=== PATIENT | male | born 1945 | race Caucasian/White ===

== ENCOUNTER 2020-04-05 15:43 | Inpatient (IN) ==
[2020-04-05 16:53] LABS: Basophils # 0.1 10*3/uL (0.0-0.2); Basophils % 0.2 % (0.0-0.8); Eosinophils % 0.1 % (0.00-10.9); Hematocrit 48.2 VOL% (42.0-52.0); Hemoglobin 15.6 GM/DL (14.0-18.0); Immature Granulocytes % 1.1 %; Immature Granulocytes Absolute 0.23 #; Lymphocytes # 1.5 10*3/uL (1.4-4.0); Lymphocytes % 7.2 % (21.2-54.2); Mean Corpuscular HGB Conc 32.4 GM/DL (32-36); Mean Platelet Volume 8.5 FL (9.6-12.0); Monocytes % 3.9 % (1.7-12.7); Neutrophils % 87.5 % (38.7-73.9); Platelet Count 308 T/CUMM (130-400); Red Blood Count 4.97 MC/CUMM (3.8-5.5); Red Cell Distribution Width 13.4 % (9.3-17.3); White Blood Count 20.8 T/CUMM (4-12)
[2020-04-05 17:15] LABS: Calcium 8.7 MG/DL (8.5-10.1); Osmolality,Calculated 274.8 MOS/KG (273-304)
[2020-04-05 17:25] LABS: Band Neutrophils 6 % (0-10); Lymphocytes 7 % (20-55); Metamyelocytes 1 %; Segmented Neutrophils 83 % (50-85); Total Cells Counted 100
[2020-04-05 17:26] LABS: Platelet Estimate Normal; Reactive Lymphocytes Slight
[2020-04-05] MEDS ORDERED: KETOROLAC 30 MG/1 ML VIAL ONE (19:17)
[2020-04-05] MEDS ORDERED: ONDANSETRON 4 MG/2 ML VIAL IV PRN (19:21)
[2020-04-05] MEDS ORDERED: DICLOFENAC 1% GEL 100 GM TUBE TOP PRN (19:21)
[2020-04-05] MEDS ORDERED: PROMETHAZINE 25 MG/1 ML VIAL IM PRN (19:21)
[2020-04-05] MEDS ORDERED: KETOROLAC 30 MG/1 ML VIAL IV ONE (19:22)
[2020-04-05] MEDS: MELOXICAM 7.5 MG TABLET PO SCH (21:34)
[2020-04-05] MEDS: CLOPIDOGREL 75 MG TABLET PO SCH (21:34)
[2020-04-05] MEDS: MONTELUKAST 10 MG TABLET PO SCH (21:34)
[2020-04-05] MEDS: ASPIRIN EC 81 MG TABLET PO SCH (21:34)
[2020-04-05] MEDS: ATORVASTATIN 40 MG TABLET PO SCH (21:34)
[2020-04-05] MEDS: TAMSULOSIN 0.4 MG CAPSULE PO SCH (21:34)
[2020-04-05] MEDS: cilostazoL 50 MG TABLET PO SCH (21:34)
[2020-04-05] MEDS: MORPHINE ER 30 MG TABLET PO SCH (21:34)
[2020-04-05] MEDS: LACTATED RINGERS 1,000 ML IV SCH (21:35)
[2020-04-05] MEDS: HYDROmorphone 2 MG/1 ML VIAL IV PRN (22:26)
[2020-04-06] MEDS: KETOROLAC 15 MG/1 ML VIAL IV PRN ×3 (01:20→21:40)
[2020-04-06] MEDS: LACTATED RINGERS 1,000 ML IV SCH ×3 (04:47→20:58)
[2020-04-06] MEDS ORDERED: PANTOPRAZOLE 40 MG TABLET PO SCH (09:00)
[2020-04-06] MEDS: VENLAFAXINE XR 75 MG CAPSULE PO SCH (09:25)
[2020-04-06] MEDS: MORPHINE ER 30 MG TABLET PO SCH ×2 (09:26→20:59)
[2020-04-06] MEDS: METOPROLOL SUCCINATE XL 25 MG TABLET PO SCH (09:26)
[2020-04-06] MEDS: predniSONE 10 MG TABLET PO SCH (09:26)
[2020-04-06] MEDS: PANTOPRAZOLE 40 MG TABLET PO SCH (09:26)
[2020-04-06] MEDS: cilostazoL 50 MG TABLET PO SCH ×2 (09:26→20:59)
[2020-04-06] MEDS: LOSARTAN/HCTZ 50-12.5 MG TABLET PO SCH (09:26)
[2020-04-06] MEDS: ENOXAPARIN 40 MG/0.4 ML SYRINGE SUBCUT SCH (11:26)
[2020-04-06] MEDS: ASPIRIN EC 81 MG TABLET PO SCH (20:58)
[2020-04-06] MEDS: MONTELUKAST 10 MG TABLET PO SCH (20:59)
[2020-04-06] MEDS: TAMSULOSIN 0.4 MG CAPSULE PO SCH (20:59)
[2020-04-06] MEDS: MELOXICAM 7.5 MG TABLET PO SCH (20:59)
[2020-04-06] MEDS: CLOPIDOGREL 75 MG TABLET PO SCH (20:59)
[2020-04-07] MEDS: HYDROmorphone 2 MG/1 ML VIAL IV PRN ×4 (04:00→15:29)
[2020-04-07] MEDS: LACTATED RINGERS 1,000 ML IV SCH (04:02)
[2020-04-07] MEDS: KETOROLAC 15 MG/1 ML VIAL IV PRN (07:45)
[2020-04-07] MEDS: VENLAFAXINE XR 75 MG CAPSULE PO SCH (10:58)
[2020-04-07] MEDS: predniSONE 10 MG TABLET PO SCH (10:58)
[2020-04-07] MEDS: LOSARTAN/HCTZ 50-12.5 MG TABLET PO SCH (10:58)
[2020-04-07] MEDS: PANTOPRAZOLE 40 MG TABLET PO SCH (10:58)
[2020-04-07] MEDS: MORPHINE ER 30 MG TABLET PO SCH (10:58)
[2020-04-07] MEDS: METOPROLOL SUCCINATE XL 25 MG TABLET PO SCH (10:59)
[2020-04-07] MEDS: cilostazoL 50 MG TABLET PO SCH (10:59)
[2020-04-07] MEDS: ENOXAPARIN 40 MG/0.4 ML SYRINGE SUBCUT SCH (11:41)
[2020-04-07] MEDS ORDERED: HYDROmorphone 2 MG/1 ML VIAL IV ONE ×2 (12:22→21:53)
[2020-04-07] MEDS ORDERED: NALOXONE 0.4 MG/ML VIAL IV PRN (12:22)
[2020-04-07] MEDS: ALBUTEROL/IPRATROPIUM 3 ML NEB RESP TX SCH ×4 (12:52→23:00)
[2020-04-07] MEDS: LIDOCAINE 5% PATCH TRANSDERM SCH (15:08)
[2020-04-07] MEDS: HYDROmorphone PCA 30 MG/30 ML SYRINGE IV SCH (15:38)
[2020-04-07] MEDS: GABAPENTIN 100 MG CAPSULE PO SCH (16:40)
[2020-04-07 20:51] LABS: ABG Base Excess 3.6 MMOL/L (-2.5-2.5); ABG HCO3 27.5 MMOL/L (20-26); ABG Oxygen Saturation 93.8 % (95-100); ABG PCO2 44.4 MM HG (35-48); ABG PH 7.419 (7.35-7.45); ABG PO2 68.3 MM HG (80-95); ABG TCO2 24.4 MMOL/L (23-27); Allen Test Positive; Pt O2 Delivery Device BIPAP
[2020-04-07] MEDS ORDERED: SUCCINYLCHOLINE 200 MG/10 ML VIAL ONE (21:09)
[2020-04-07] MEDS ORDERED: ETOMIDATE 20 MG/10 ML VIAL IV ONE (21:09)
[2020-04-07 22:00] LABS: Basophils # 0.1 10*3/uL (0.0-0.2); Basophils % 0.2 % (0.0-0.8); Hematocrit 47.3 VOL% (42.0-52.0); Immature Granulocytes % 0.7 %; Immature Granulocytes Absolute 0.17 #; Lymphocytes # 1.7 10*3/uL (1.4-4.0); Lymphocytes % 6.5 % (21.2-54.2); Mean Corpuscular HGB Conc 31.7 GM/DL (32-36); Mean Corpuscular Volume 98.5 FL (87-102); Mean Platelet Volume 8.8 FL (9.6-12.0); Monocytes % 3.2 % (1.7-12.7); Neutrophils % 89.4 % (38.7-73.9); Platelet Count 292 T/CUMM (130-400); Red Cell Distribution Width 13.3 % (9.3-17.3); White Blood Count 26.1 T/CUMM (4-12)
[2020-04-07] MEDS ORDERED: HEPARIN 5,000 UNIT/1 ML VIAL IV ONE (22:00)
[2020-04-07] MEDS ORDERED: VECURONIUM 10 MG VIAL IV ONE (22:05)
[2020-04-07 22:13] LABS: Allen Test Positive; Pt O2 Delivery Device Ventilator
[2020-04-07 22:15] LABS: Calcium 8.2 MG/DL (8.5-10.1); INR 1.1; Osmolality,Calculated 272.1 MOS/KG (273-304); PT Patient Result 11.8 SECS (9.8-11.9); Partial Thromboplastin Time 29.3 SECS (23.9-33.8)
[2020-04-07 22:15] LABS: ABG Base Excess 0.8 MMOL/L (-2.5-2.5); ABG HCO3 24.7 MMOL/L (20-26); ABG Oxygen Saturation 82.4 % (95-100); ABG PCO2 44.2 MM HG (35-48); ABG PH 7.383 (7.35-7.45); ABG PO2 46.7 MM HG (80-95); ABG TCO2 22.6 MMOL/L (23-27)
[2020-04-07] MEDS ORDERED: FUROSEMIDE 40 MG/4 ML VIAL ONE (22:16)
[2020-04-07] MEDS ORDERED: HEPARIN/NACL 0.9% 2 UNITS/ML 1,000 ML IV ONE (22:20)
[2020-04-07] MEDS ORDERED: LIDOCAINE 1% 20 ML VIAL ONE (22:20)
[2020-04-07 22:22] LABS: Band Neutrophils 8 % (0-10); Lymphocytes 7 % (20-55); Platelet Estimate Adequate; Segmented Neutrophils 82 % (50-85); Total Cells Counted 100
[2020-04-07 22:23] LABS: CKMB % 2.7 %
[2020-04-07] MEDS ORDERED: FUROSEMIDE 40 MG/4 ML VIAL IV ONE (22:24)
[2020-04-07 22:26] LABS: Troponin I 2.4 NG/ML (0.00-0.045)
[2020-04-07 22:32] LABS: Ferritin 303.1 ng/ml (26-388)
[2020-04-07] MEDS ORDERED: HEPARIN 5,000 UNIT/1 ML VIAL ONE (23:11)
[2020-04-07] MEDS ORDERED: ESMOLOL 2,500 MG/250 ML PREMIX IV SCH (23:45)
[2020-04-07] MEDS ORDERED: MAGNESIUM SULF RIDER 4 GM in PREMIX 1 EACH IV ONE (23:49)
[2020-04-08] MEDS: PHENYLEPHRINE DRIP 40 MG/250 ML PREMIX IV PRN ×5 (00:30→11:34)
[2020-04-08] MEDS ORDERED: VECURONIUM 100 MG in SODIUM CHLORIDE 0.9% 100 ML IV SCH (00:30)
[2020-04-08] MEDS ORDERED: CISATRACURIUM 200 MG in SODIUM CHLORIDE 0.9% 180 ML IV PRN (00:34)
[2020-04-08] MEDS: TAMSULOSIN 0.4 MG CAPSULE PO SCH ×2 (01:23→22:55)
[2020-04-08] MEDS: MELOXICAM 7.5 MG TABLET PO SCH (01:23)
[2020-04-08] MEDS: MORPHINE ER 30 MG TABLET PO SCH ×3 (01:23→22:54)
[2020-04-08] MEDS: ASPIRIN EC 81 MG TABLET PO SCH ×2 (01:23→22:53)
[2020-04-08] MEDS: MONTELUKAST 10 MG TABLET PO SCH ×2 (01:24→22:53)
[2020-04-08] MEDS: GABAPENTIN 100 MG CAPSULE PO SCH ×4 (01:24→22:55)
[2020-04-08] MEDS: CLOPIDOGREL 75 MG TABLET PO SCH ×2 (01:24→22:54)
[2020-04-08] MEDS: cilostazoL 50 MG TABLET PO SCH (01:24)
[2020-04-08 01:31] LABS: Basophils # 0.1 10*3/uL (0.0-0.2); Basophils % 0.2 % (0.0-0.8); Eosinophils # 0.1 10*3/uL (0.0-0.87); Eosinophils % 0.3 % (0.00-10.9); Hemoglobin 14.1 GM/DL (14.0-18.0); Immature Granulocytes % 0.6 %; Immature Granulocytes Absolute 0.13 #; Lymphocytes # 0.8 10*3/uL (1.4-4.0); Mean Corpuscular Volume 97.8 FL (87-102); Mean Platelet Volume 9.4 FL (9.6-12.0); Monocytes % 2.4 % (1.7-12.7); Neutrophils % 92.5 % (38.7-73.9); Platelet Count 265 T/CUMM (130-400); Red Cell Distribution Width 13.3 % (9.3-17.3); White Blood Count 20.3 T/CUMM (4-12)
[2020-04-08 01:48] LABS: Calcium 8.1 MG/DL (8.5-10.1); Osmolality,Calculated 271.2 MOS/KG (273-304)
[2020-04-08] MEDS: ALBUTEROL/IPRATROPIUM 3 ML NEB RESP TX SCH ×6 (03:00→23:40)
[2020-04-08 03:30] LABS: Band Neutrophils 10 % (0-10); Hypochromasia 2+; Lymphocytes 4 % (20-55); Platelet Estimate Normal; Segmented Neutrophils 83 % (50-85); Total Cells Counted 100
[2020-04-08 04:34] LABS: ABG Base Excess -1.1 MMOL/L (-2.5-2.5); ABG HCO3 27.2 MMOL/L (20-26); ABG Oxygen Saturation 93.6 % (95-100); ABG PCO2 60.7 MM HG (35-48); ABG PH 7.269 (7.35-7.45); ABG PO2 76.7 MM HG (80-95); Allen Test Positive; Pt O2 Delivery Device Ventilator
[2020-04-08 07:59] LABS: ABG Base Excess -0.6 MMOL/L (-2.5-2.5); ABG HCO3 23.7 MMOL/L (20-26); ABG Oxygen Saturation 91.7 % (95-100); ABG PH 7.236 (7.35-7.45); ABG PO2 71.8 MM HG (80-95)
[2020-04-08] MEDS ORDERED: FUROSEMIDE 40 MG/4 ML VIAL IV SCH (08:00)
[2020-04-08 08:04] LABS: ABG PCO2 69.7 MM HG (35-48)
[2020-04-08] MEDS ORDERED: SODIUM CHLORIDE 0.9% 500 ML IV ONE (08:52)
[2020-04-08 09:02] LABS: CKMB % 3.7 %
[2020-04-08] MEDS ORDERED: NOREPINEPHRINE 4 MG/4 ML VIAL IV ONE (09:03)
[2020-04-08 09:05] LABS: Troponin I 4.08 NG/ML (0.00-0.045)
[2020-04-08] MEDS ORDERED: fentaNYL INJ 1,250 MCG in SODIUM CHLORIDE 0.9% 225 ML IV PRN (09:20)
[2020-04-08] MEDS: methylPREDNISolone SOD SUC 40 MG/1 ML VIAL IV SCH ×2 (09:55→17:59)
[2020-04-08] MEDS: VENLAFAXINE XR 75 MG CAPSULE PO SCH (09:55)
[2020-04-08] MEDS: PANTOPRAZOLE 40 MG VIAL IV SCH (09:55)
[2020-04-08] MEDS ORDERED: MAGNESIUM SULF RIDER 2 GM in PREMIX 1 EACH IV PRN (10:20)
[2020-04-08] MEDS ORDERED: MAGNESIUM SULF RIDER 4 GM in PREMIX 1 EACH IV PRN (10:20)
[2020-04-08] MEDS ORDERED: GLUCAGON 1 MG VIAL IM PRN (10:54)
[2020-04-08] MEDS: MIDAZOLAM 100 MG in SODIUM CHLORIDE 0.9% 80 ML IV PRN (10:57)
[2020-04-08] MEDS: NOREPINEPHRINE 8 MG in SODIUM CHLORIDE 0.9% 242 ML IV PRN (11:09)
[2020-04-08] MEDS ORDERED: DEXTROSE 10% 250 ML BAG IV PRN (11:21)
[2020-04-08] MEDS: FUROSEMIDE 40 MG/4 ML VIAL IV SCH ×2 (11:29→18:01)
[2020-04-08] MEDS: LIDOCAINE 5% PATCH TRANSDERM SCH (11:45)
[2020-04-08 12:10] LABS: CKMB % 4.2 %
[2020-04-08] MEDS: INSULIN REGULAR 100 UNIT/ML SUBCUT SCH ×2 (12:27→18:22)
[2020-04-08] MEDS: ENOXAPARIN 40 MG/0.4 ML SYRINGE SUBCUT SCH (13:00)
[2020-04-08] MEDS: HYDROmorphone PCA 30 MG/30 ML SYRINGE IV SCH (13:12)
[2020-04-08] MEDS: PHENYLEPHRINE INJ 160 MG in SODIUM CHLORIDE 0.9% 234 ML IV PRN ×2 (13:39→21:04)
[2020-04-08] MEDS ORDERED: LIDOCAINE 1% 20 ML VIAL ONE (15:11)
[2020-04-08] MEDS ORDERED: HEPARIN 5,000 UNIT/1 ML VIAL ONE ×2 (15:44→16:11)
[2020-04-08] MEDS: HEPARIN DRIP 25,000 UNITS/500 ML PREMIX IV SCH (18:33)
[2020-04-08 18:45] LABS: Basophils % 0.2 % (0.0-0.8); Hematocrit 42.7 VOL% (42.0-52.0); Hemoglobin 13.2 GM/DL (14.0-18.0); Immature Granulocytes % 0.7 %; Immature Granulocytes Absolute 0.14 #; Lymphocytes # 0.3 10*3/uL (1.4-4.0); Lymphocytes % 1.6 % (21.2-54.2); Mean Corpuscular HGB Conc 30.9 GM/DL (32-36); Mean Corpuscular Volume 100.7 FL (87-102); Mean Platelet Volume 9.4 FL (9.6-12.0); Monocytes % 2.1 % (1.7-12.7); Neutrophils % 95.4 % (38.7-73.9); Platelet Count 263 T/CUMM (130-400); Red Blood Count 4.24 MC/CUMM (3.8-5.5); Red Cell Distribution Width 13.4 % (9.3-17.3); White Blood Count 21.1 T/CUMM (4-12)
[2020-04-08 19:01] LABS: Albumin 1.9 G/DL (3.4-5.0); Bilirubin,Total 2.5 MG/DL (0.2-1.0); Calcium 7.6 MG/DL (8.5-10.1); Osmolality,Calculated 283.8 MOS/KG (273-304); Total Protein 5.5 G/DL (6.4-8.3)
[2020-04-08 19:42] LABS: Lymphocytes 2 % (20-55); Segmented Neutrophils 95 % (50-85); Total Cells Counted 100
[2020-04-08] MEDS: DEXTROSE 5% IV SCH (19:46)
[2020-04-08] MEDS: HEPARIN IV SCH (19:46)
[2020-04-08] MEDS: ATORVASTATIN 40 MG TABLET PO SCH (22:53)
[2020-04-09] MEDS: methylPREDNISolone SOD SUC 40 MG/1 ML VIAL IV SCH ×3 (00:35→16:35)
[2020-04-09] MEDS: INSULIN REGULAR 100 UNIT/ML SUBCUT SCH ×4 (00:35→17:38)
[2020-04-09] MEDS: CISATRACURIUM 200 MG in SODIUM CHLORIDE 0.9% 180 ML IV PRN ×2 (01:09→23:51)
[2020-04-09] MEDS: ALBUTEROL/IPRATROPIUM 3 ML NEB RESP TX SCH ×3 (02:35→12:27)
[2020-04-09] MEDS: OXYMETAZOLINE 0.05% NASAL SPRAY 15 ML BOTTLE BOTH NARES PRN ×2 (02:57→11:58)
[2020-04-09] MEDS: PHENYLEPHRINE INJ 160 MG in SODIUM CHLORIDE 0.9% 234 ML IV PRN (05:09)
[2020-04-09 05:47] LABS: ABG Base Excess -1.2 MMOL/L (-2.5-2.5); ABG Oxygen Saturation 98.4 % (95-100); ABG PH 7.301 (7.35-7.45); ABG PO2 126.4 MM HG (80-95); ABG TCO2 27.7 MMOL/L (23-27)
[2020-04-09 05:48] LABS: Basophils % 0.2 % (0.0-0.8); Hematocrit 41.4 VOL% (42.0-52.0); Hemoglobin 13.2 GM/DL (14.0-18.0); Immature Granulocytes % 0.8 %; Immature Granulocytes Absolute 0.17 #; Lymphocytes # 0.4 10*3/uL (1.4-4.0); Lymphocytes % 1.9 % (21.2-54.2); Mean Corpuscular HGB Conc 31.9 GM/DL (32-36); Mean Corpuscular Volume 98.8 FL (87-102); Mean Platelet Volume 9.5 FL (9.6-12.0); Monocytes % 3.2 % (1.7-12.7); Neutrophils % 93.9 % (38.7-73.9); Platelet Count 232 T/CUMM (130-400); Red Blood Count 4.19 MC/CUMM (3.8-5.5); Red Cell Distribution Width 13.4 % (9.3-17.3); White Blood Count 22.1 T/CUMM (4-12)
[2020-04-09 06:09] LABS: Band Neutrophils 10 % (0-10); Calcium 7.7 MG/DL (8.5-10.1); Hypochromasia Slight; Lymphocytes 1 % (20-55); Osmolality,Calculated 287.7 MOS/KG (273-304); Polychromasia Slight; Segmented Neutrophils 87 % (50-85); Total Cells Counted 100
[2020-04-09 06:10] LABS: Microcytosis Slight; Platelet Estimate Normal
[2020-04-09 06:38] LABS: Prealbumin 6.3 MG/DL (20-40)
[2020-04-09 07:19] LABS: Bilirubin,Direct 1.99 MG/DL (0.0-0.20); Bilirubin,Indirect 1.3 MG/DL (0.0-1.0); Bilirubin,Total 3.3 MG/DL (0.2-1.0); Total Protein 4.8 G/DL (6.4-8.3)
[2020-04-09] MEDS: FUROSEMIDE 40 MG/4 ML VIAL IV SCH (09:13)
[2020-04-09] MEDS: PANTOPRAZOLE 40 MG VIAL IV SCH (09:13)
[2020-04-09] MEDS: VENLAFAXINE XR 75 MG CAPSULE PO SCH (09:23)
[2020-04-09] MEDS: MORPHINE ER 30 MG TABLET PO SCH ×2 (09:24→21:38)
[2020-04-09] MEDS: GABAPENTIN 100 MG CAPSULE PO SCH ×3 (09:24→21:38)
[2020-04-09] MEDS: METOPROLOL TARTRATE 25 MG TABLET PO SCH ×2 (09:25→21:38)
[2020-04-09] MEDS: POTASSIUM CHLORIDE 20 MEQ/15 ML UDCUP PER TUBE PRN ×2 (09:27→12:30)
[2020-04-09] MEDS: LIDOCAINE 5% PATCH TRANSDERM SCH (09:28)
[2020-04-09] MEDS ORDERED: METOPROLOL TARTRATE 5 MG/5 ML VIAL IV ONE (09:47)
[2020-04-09] MEDS: SODIUM CHLORIDE 0.9% 1,000 ML IV SCH (12:00)
[2020-04-09] MEDS: METOPROLOL TARTRATE 5 MG/5 ML VIAL IV SCH ×2 (12:23→18:26)
[2020-04-09] MEDS: HYDROmorphone PCA 30 MG/30 ML SYRINGE IV SCH (12:28)
[2020-04-09] MEDS: HEPARIN DRIP 25,000 UNITS/500 ML PREMIX IV SCH ×2 (14:25→18:16)
[2020-04-09] MEDS: HEPARIN IV SCH (18:16)
[2020-04-09] MEDS: DEXTROSE 5% IV SCH (18:16)
[2020-04-09] MEDS: ASPIRIN CHEW 81 MG TABLET PO SCH (21:38)
[2020-04-09] MEDS: TAMSULOSIN 0.4 MG CAPSULE PO SCH (21:38)
[2020-04-09] MEDS: MONTELUKAST 10 MG TABLET PO SCH (21:39)
[2020-04-09] MEDS: CLOPIDOGREL 75 MG TABLET PO SCH (21:40)
[2020-04-10] MEDS: METOPROLOL TARTRATE 5 MG/5 ML VIAL IV SCH ×6 (00:27→22:37)
[2020-04-10] MEDS: methylPREDNISolone SOD SUC 40 MG/1 ML VIAL IV SCH ×3 (00:29→15:19)
[2020-04-10] MEDS: INSULIN REGULAR 100 UNIT/ML SUBCUT SCH ×4 (00:39→18:49)
[2020-04-10] MEDS: SODIUM CHLORIDE 0.9% 1,000 ML IV SCH ×2 (02:05→13:47)
[2020-04-10 04:05] LABS: Basophils % 0.2 % (0.0-0.8); Eosinophils # 0.1 10*3/uL (0.0-0.87); Eosinophils % 0.3 % (0.00-10.9); Hematocrit 36.5 VOL% (42.0-52.0); Hemoglobin 11.6 GM/DL (14.0-18.0); Immature Granulocytes % 1.2 %; Immature Granulocytes Absolute 0.28 #; Lymphocytes # 0.2 10*3/uL (1.4-4.0); Lymphocytes % 1.1 % (21.2-54.2); Mean Corpuscular HGB Conc 31.8 GM/DL (32-36); Mean Corpuscular Volume 98.4 FL (87-102); Mean Platelet Volume 10.2 FL (9.6-12.0); Monocytes % 5.1 % (1.7-12.7); NRBC # 0.02 10*3/uL; Neutrophils % 92.1 % (38.7-73.9); Red Blood Count 3.71 MC/CUMM (3.8-5.5); Red Cell Distribution Width 13.8 % (9.3-17.3); White Blood Count 22.6 T/CUMM (4-12)
[2020-04-10 04:11] LABS: Platelet Count 171 T/CUMM (130-400)
[2020-04-10 04:20] LABS: Calcium 7.3 MG/DL (8.5-10.1); Osmolality,Calculated 297.3 MOS/KG (273-304)
[2020-04-10] MEDS: MIDAZOLAM 100 MG in SODIUM CHLORIDE 0.9% 80 ML IV PRN ×2 (04:56→17:03)
[2020-04-10] MEDS: KETOROLAC 15 MG/1 ML VIAL IV PRN ×2 (05:12→14:28)
[2020-04-10 06:25] LABS: ABG Base Excess 1.6 MMOL/L (-2.5-2.5); ABG HCO3 25.8 MMOL/L (20-26); ABG Oxygen Saturation 97.3 % (95-100); ABG PCO2 46.9 MM HG (35-48); ABG PH 7.374 (7.35-7.45); ABG PO2 93.6 MM HG (80-95); ABG TCO2 24.5 MMOL/L (23-27)
[2020-04-10 06:49] LABS: Band Neutrophils 4 % (0-10); Lymphocytes 2 % (20-55); Segmented Neutrophils 88 % (50-85); Total Cells Counted 100
[2020-04-10 06:50] LABS: Microcytosis Slight; Platelet Estimate Adequate
[2020-04-10] MEDS: HEPARIN IV SCH (07:45)
[2020-04-10] MEDS: DEXTROSE 5% IV SCH (07:45)
[2020-04-10] MEDS: LIDOCAINE 5% PATCH TRANSDERM SCH (08:51)
[2020-04-10] MEDS: PANTOPRAZOLE 40 MG VIAL IV SCH (08:51)
[2020-04-10] MEDS: VENLAFAXINE XR 75 MG CAPSULE PO SCH (08:52)
[2020-04-10] MEDS: MORPHINE ER 30 MG TABLET PO SCH ×2 (08:52→23:04)
[2020-04-10] MEDS: GABAPENTIN 100 MG CAPSULE PO SCH ×3 (08:52→20:10)
[2020-04-10] MEDS: METOPROLOL TARTRATE 25 MG TABLET PO SCH (09:02)
[2020-04-10] MEDS: HEPARIN DRIP 25,000 UNITS/500 ML PREMIX IV SCH ×2 (10:10→18:47)
[2020-04-10] MEDS: ACETAMINOPHEN 325 MG TABLET PO PRN ×3 (10:15→20:45)
[2020-04-10 10:59] LABS: Apearance,Urine Slightly Hazy (Clear); Bilirubin,Urine Negative (Negative); Blood, Urine Moderate mg/dL (Negative); Glucose,Urine (UA) Negative (Negative); Ketones,Urine Negative (Negative); Mucus,Urine Occasional /LPF (Occasional); Nitrite,Urine Negative (Negative); Protein,Urine 30 MG/DL; RBC,Urine 4 /HPF (0-4); Squamous Epithelial Cell,Urine Occasional /HPF (0-10); Urine Color Amber (Yellow); Urine Specific Gravity 1.019 (1.001-1.035); WBC,Urine 9 /HPF (0-6)
[2020-04-10] MEDS ORDERED: METOPROLOL TARTRATE 5 MG/5 ML VIAL IV ONE (12:03)
[2020-04-10] MEDS: CISATRACURIUM 200 MG in SODIUM CHLORIDE 0.9% 180 ML IV PRN (15:21)
[2020-04-10] MEDS ORDERED: METOPROLOL TARTRATE 5 MG/5 ML VIAL IV PRN (16:00)
[2020-04-10] MEDS ORDERED: SODIUM CHLORIDE 0.9% 500 ML IV ONE (16:13)
[2020-04-10] MEDS: ASPIRIN CHEW 81 MG TABLET PO SCH (20:11)
[2020-04-10] MEDS: MONTELUKAST 10 MG TABLET PO SCH (20:11)
[2020-04-10] MEDS: HYDROmorphone 2 MG/1 ML VIAL IV PRN (20:11)
[2020-04-10] MEDS: ATORVASTATIN 40 MG TABLET PO SCH (20:11)
[2020-04-10] MEDS: TAMSULOSIN 0.4 MG CAPSULE PO SCH (20:11)
[2020-04-10] MEDS ORDERED: DIGOXIN 0.5 MG/2 ML AMP IV ONE (21:32)
[2020-04-10] MEDS ORDERED: ALBUMIN 25% 25 GM in PREMIX 1 EACH IV ONE (21:32)
[2020-04-10] MEDS ORDERED: HYDROmorphone 2 MG/1 ML VIAL IV ONE (22:10)
[2020-04-10 22:21] LABS: Alanine Aminotransferase 26 U/L (16-61); Albumin 1.5 G/DL (3.4-5.0); Alkaline Phosphatase 71 U/L (45-117); Aspartate Amino Transferase 41 U/L (0-37); Blood Urea Nitrogen 68 MG/DL (7-18); Calcium 7.3 MG/DL (8.5-10.1); Estimated Glom Filtration Rate 37 ML/MIN; Glucose 127 MG/DL (74-106); Osmolality,Calculated 307.8 MOS/KG (273-304); Total Protein 4.9 G/DL (6.4-8.3)
[2020-04-10 22:53] LABS: ABG Base Excess -3.3 MMOL/L (-2.5-2.5); ABG HCO3 21.5 MMOL/L (20-26); ABG Oxygen Saturation 90.9 % (95-100); ABG PCO2 59.3 MM HG (35-48); ABG PH 7.241 (7.35-7.45); ABG PO2 69.5 MM HG (80-95); ABG TCO2 22.9 MMOL/L (23-27)
[2020-04-10] MEDS ORDERED: SODIUM CHLORIDE 0.9% 2,000 ML IV ONE (22:53)
[2020-04-10] MEDS ORDERED: VANCOMYCIN INJ 1,000 MG in SODIUM CHLORIDE 0.9% 250 ML IV ONE (23:00)
[2020-04-11] MEDS ORDERED: SODIUM CHLORIDE 0.9% 700 ML IV ONE
[2020-04-11] MEDS: MEROPENEM 500 MG in SODIUM CHLORIDE 0.9% 100 ML IV SCH ×4 (00:38→23:45)
[2020-04-11] MEDS: INSULIN REGULAR 100 UNIT/ML SUBCUT SCH ×5 (00:39→23:58)
[2020-04-11] MEDS: methylPREDNISolone SOD SUC 40 MG/1 ML VIAL IV SCH ×4 (00:51→23:50)
[2020-04-11] MEDS ORDERED: NOREPINEPHRINE 4 MG/4 ML VIAL IV ONE (01:08)
[2020-04-11] MEDS: NOREPINEPHRINE 8 MG in SODIUM CHLORIDE 0.9% 242 ML IV PRN ×4 (01:21→19:40)
[2020-04-11 01:22] LABS: ABG Base Excess -4.6 MMOL/L (-2.5-2.5); ABG HCO3 20.3 MMOL/L (20-26); ABG Oxygen Saturation 82.1 % (95-100); ABG PCO2 63.9 MM HG (35-48); ABG PO2 55.2 MM HG (80-95); ABG TCO2 23.1 MMOL/L (23-27)
[2020-04-11 01:23] LABS: ABG PH 7.192 (7.35-7.45)
[2020-04-11] MEDS: METOPROLOL TARTRATE 5 MG/5 ML VIAL IV SCH ×7 (03:11→22:52)
[2020-04-11] MEDS: SODIUM CHLORIDE 0.9% 1,000 ML IV SCH ×4 (03:14→17:52)
[2020-04-11 03:28] LABS: ABG HCO3 20.1 MMOL/L (20-26); ABG Oxygen Saturation 87.6 % (95-100); ABG PCO2 62.9 MM HG (35-48); ABG PO2 62.6 MM HG (80-95); ABG TCO2 22.7 MMOL/L (23-27)
[2020-04-11 03:31] LABS: ABG PH 7.191 (7.35-7.45)
[2020-04-11 03:45] LABS: Basophils # 0.1 10*3/uL (0.0-0.2); Basophils % 0.5 % (0.0-0.8); Hemoglobin 10.2 GM/DL (14.0-18.0); Immature Granulocytes % 2.1 %; Immature Granulocytes Absolute 0.23 #; Lymphocytes # 0.4 10*3/uL (1.4-4.0); Lymphocytes % 3.3 % (21.2-54.2); Mean Platelet Volume 10.5 FL (9.6-12.0); Monocytes % 4.4 % (1.7-12.7); NRBC # 0.05 10*3/uL; Neutrophils % 89.7 % (38.7-73.9); Red Cell Distribution Width 14.2 % (9.3-17.3); White Blood Count 10.7 T/CUMM (4-12)
[2020-04-11 03:51] LABS: Platelet Count 93 T/CUMM (130-400)
[2020-04-11 03:55] LABS: INR 1.1; PT Patient Result 11.8 SECS (9.8-11.9)
[2020-04-11 03:56] LABS: Albumin 1.7 G/DL (3.4-5.0); Bilirubin,Direct 4.73 MG/DL (0.0-0.20); Bilirubin,Indirect 1.5 MG/DL (0.0-1.0); Bilirubin,Total 6.2 MG/DL (0.2-1.0); Total Protein 4.5 G/DL (6.4-8.3)
[2020-04-11 03:57] LABS: Albumin 1.7 G/DL (3.4-5.0); Bilirubin,Total 5.6 MG/DL (0.2-1.0); Calcium 6.6 MG/DL (8.5-10.1); Osmolality,Calculated 309.6 MOS/KG (273-304); Total Protein 4.6 G/DL (6.4-8.3)
[2020-04-11 04:07] LABS: Calcium 6.6 MG/DL (8.5-10.1); Partial Thromboplastin Time 78.2 SECS (23.9-33.8)
[2020-04-11] MEDS: MIDAZOLAM 100 MG in SODIUM CHLORIDE 0.9% 80 ML IV PRN ×2 (05:20→17:42)
[2020-04-11 05:39] LABS: Band Neutrophils 10 % (0-10); Lymphocytes 6 % (20-55); Metamyelocytes 18 %; Myelocytes 18 %; Nucleated Red Blood Cells 1 (0-5); Segmented Neutrophils 44 % (50-85); Total Cells Counted 100
[2020-04-11 05:41] LABS: Hypochromasia Slight; Platelet Estimate Decreased; Polychromasia Few
[2020-04-11] MEDS ORDERED: AMIODARONE INJ 150 MG in DEXTROSE 5% 100 ML IV ONE ×2 (05:52→14:44)
[2020-04-11] MEDS ORDERED: AMIODARONE INJ 450 MG in DEXTROSE 5% 241 ML IV SCH ×2 (06:00→12:00)
[2020-04-11] MEDS: HYDROmorphone 2 MG/1 ML VIAL IV PRN ×2 (06:05→14:02)
[2020-04-11 06:19] LABS: ABG Base Excess -6.9 MMOL/L (-2.5-2.5); ABG HCO3 18.7 MMOL/L (20-26); ABG Oxygen Saturation 87.7 % (95-100); ABG PCO2 57.4 MM HG (35-48); ABG PO2 62.1 MM HG (80-95); ABG TCO2 20.1 MMOL/L (23-27)
[2020-04-11 06:21] LABS: ABG PH 7.201 (7.35-7.45)
[2020-04-11] MEDS ORDERED: VANCOMYCIN INJ 1,500 MG in SODIUM CHLORIDE 0.9% 500 ML IV PRN (07:51)
[2020-04-11] MEDS ORDERED: VANCOMYCIN INJ 750 MG in SODIUM CHLORIDE 0.9% 250 ML IV ONE (08:30)
[2020-04-11] MEDS: PANTOPRAZOLE 40 MG VIAL IV SCH (09:01)
[2020-04-11] MEDS: LIDOCAINE 5% PATCH TRANSDERM SCH (09:04)
[2020-04-11] MEDS: GABAPENTIN 100 MG CAPSULE PO SCH ×3 (09:51→20:08)
[2020-04-11] MEDS: VENLAFAXINE XR 75 MG CAPSULE PO SCH (09:51)
[2020-04-11] MEDS: MORPHINE ER 30 MG TABLET PO SCH ×2 (09:51→20:08)
[2020-04-11] MEDS: CISATRACURIUM 200 MG in SODIUM CHLORIDE 0.9% 180 ML IV PRN (10:22)
[2020-04-11] MEDS ORDERED: AMIODARONE 150 MG/3 ML VIAL ONE (14:45)
[2020-04-11] MEDS: AMIODARONE INJ 450 MG in DEXTROSE 5% 241 ML IV SCH ×2 (14:58→23:40)
[2020-04-11] MEDS ORDERED: DILTIAZEM 25 MG/5 ML VIAL IV ONE (15:56)
[2020-04-11] MEDS ORDERED: niCARdipine 25 MG/10 ML VIAL IV ONE (15:56)
[2020-04-11] MEDS ORDERED: DILTIAZEM 50 MG/10 ML VIAL IV ONE (15:58)
[2020-04-11] MEDS: dilTIAZem Drip 125 MG/125 ML PREMIX IV SCH (16:05)
[2020-04-11 16:44] LABS: ABG Base Excess -9.8 MMOL/L (-2.5-2.5); ABG HCO3 16.4 MMOL/L (20-26); ABG Oxygen Saturation 88.2 % (95-100); ABG PCO2 52.3 MM HG (35-48); ABG PO2 63.3 MM HG (80-95); ABG TCO2 17.8 MMOL/L (23-27)
[2020-04-11 16:46] LABS: ABG PH 7.168 (7.35-7.45)
[2020-04-11 16:57] LABS: Calcium 6.6 MG/DL (8.5-10.1); Osmolality,Calculated 301.4 MOS/KG (273-304)
[2020-04-11] MEDS ORDERED: SODIUM BICARB INJ 150 MEQ in STERILE WATER INJ 350 ML IV ONE (17:10)
[2020-04-11] MEDS: TAMSULOSIN 0.4 MG CAPSULE PO SCH (20:08)
[2020-04-11] MEDS: ASPIRIN CHEW 81 MG TABLET PO SCH (20:08)
[2020-04-11] MEDS: CLOPIDOGREL 75 MG TABLET PO SCH (20:08)
[2020-04-11] MEDS: MONTELUKAST 10 MG TABLET PO SCH (20:09)
[2020-04-11] MEDS: PHENYLEPHRINE INJ 160 MG in SODIUM CHLORIDE 0.9% 234 ML IV PRN (22:35)
[2020-04-12] MEDS: METOPROLOL TARTRATE 5 MG/5 ML VIAL IV SCH ×6 (02:06→21:03)
[2020-04-12 03:21] LABS: ABG Base Excess -5.1 MMOL/L (-2.5-2.5); ABG HCO3 20.1 MMOL/L (20-26); ABG PCO2 48.3 MM HG (35-48); ABG PH 7.266 (7.35-7.45); ABG PO2 79.8 MM HG (80-95); ABG TCO2 20.3 MMOL/L (23-27)
[2020-04-12 04:02] LABS: Basophils % 0.1 % (0.0-0.8); Hematocrit 31.8 VOL% (42.0-52.0); Immature Granulocytes % 5.7 %; Immature Granulocytes Absolute 1.31 #; Lymphocytes # 0.3 10*3/uL (1.4-4.0); Lymphocytes % 1.1 % (21.2-54.2); Mean Corpuscular HGB Conc 31.4 GM/DL (32-36); Mean Corpuscular Volume 99.1 FL (87-102); Mean Platelet Volume 12.4 FL (9.6-12.0); Monocytes % 3.2 % (1.7-12.7); NRBC # 0.16 10*3/uL; Neutrophils % 89.9 % (38.7-73.9); Platelet Count 89 T/CUMM (130-400); Red Blood Count 3.21 MC/CUMM (3.8-5.5); Red Cell Distribution Width 14.6 % (9.3-17.3); White Blood Count 23.2 T/CUMM (4-12)
[2020-04-12 04:19] LABS: Alanine Aminotransferase 150 U/L (16-61); Albumin 1.5 G/DL (3.4-5.0); Alkaline Phosphatase 71 U/L (45-117); Aspartate Amino Transferase 323 U/L (0-37); Blood Urea Nitrogen 85 MG/DL (7-18); Calcium 6.6 MG/DL (8.5-10.1); Estimated Glom Filtration Rate 19 ML/MIN; Glucose 114 MG/DL (74-106); Osmolality,Calculated 307.3 MOS/KG (273-304); Total Protein 4.6 G/DL (6.4-8.3)
[2020-04-12] MEDS: dilTIAZem Drip 125 MG/125 ML PREMIX IV SCH ×2 (05:22→16:34)
[2020-04-12 05:35] LABS: Band Neutrophils 21 % (0-10); Lymphocytes 1 % (20-55); Metamyelocytes 2 %; Nucleated Red Blood Cells 1 (0-5); Platelet Estimate Decreased; Segmented Neutrophils 69 % (50-85); Total Cells Counted 100
[2020-04-12 05:37] LABS: Polychromasia Slight
[2020-04-12 05:38] LABS: Target Cells Slight
[2020-04-12] MEDS: MEROPENEM 500 MG in SODIUM CHLORIDE 0.9% 100 ML IV SCH ×2 (06:10→18:17)
[2020-04-12] MEDS: INSULIN REGULAR 100 UNIT/ML SUBCUT SCH ×3 (06:22→18:09)
[2020-04-12] MEDS: AMIODARONE INJ 450 MG in DEXTROSE 5% 241 ML IV SCH ×3 (06:29→23:00)
[2020-04-12] MEDS: VENLAFAXINE XR 75 MG CAPSULE PO SCH (08:52)
[2020-04-12] MEDS: DILTIAZEM 30 MG TABLET PO SCH ×4 (08:52→21:02)
[2020-04-12] MEDS: PANTOPRAZOLE 40 MG VIAL IV SCH (08:52)
[2020-04-12] MEDS: MORPHINE ER 30 MG TABLET PO SCH ×2 (08:52→20:29)
[2020-04-12] MEDS: methylPREDNISolone SOD SUC 40 MG/1 ML VIAL IV SCH ×2 (08:52→15:15)
[2020-04-12] MEDS: GABAPENTIN 100 MG CAPSULE PO SCH ×3 (08:52→21:02)
[2020-04-12] MEDS: LIDOCAINE 5% PATCH TRANSDERM SCH (09:12)
[2020-04-12] MEDS: NOREPINEPHRINE 8 MG in SODIUM CHLORIDE 0.9% 242 ML IV PRN (09:13)
[2020-04-12] MEDS: SODIUM BICARB INJ 150 MEQ in STERILE WATER INJ 850 ML IV SCH ×3 (10:12→21:03)
[2020-04-12] MEDS: HYDROmorphone 2 MG/1 ML VIAL IV PRN (11:52)
[2020-04-12] MEDS: TAMSULOSIN 0.4 MG CAPSULE PO SCH (20:35)
[2020-04-12] MEDS: CLOPIDOGREL 75 MG TABLET PO SCH (21:02)
[2020-04-12] MEDS: ASPIRIN CHEW 81 MG TABLET PO SCH (21:02)
[2020-04-12] MEDS: MONTELUKAST 10 MG TABLET PO SCH (21:03)
[2020-04-13] MEDS: INSULIN REGULAR 100 UNIT/ML SUBCUT SCH ×4 (01:01→17:45)
[2020-04-13] MEDS: methylPREDNISolone SOD SUC 40 MG/1 ML VIAL IV SCH ×4 (01:13→23:17)
[2020-04-13] MEDS: METOPROLOL TARTRATE 5 MG/5 ML VIAL IV SCH ×6 (01:16→23:16)
[2020-04-13] MEDS: MIDAZOLAM 100 MG in SODIUM CHLORIDE 0.9% 80 ML IV PRN (04:00)
[2020-04-13 05:40] LABS: ABG Base Excess 0.5 MMOL/L (-2.5-2.5); ABG HCO3 24.9 MMOL/L (20-26); ABG Oxygen Saturation 97.5 % (95-100); ABG PCO2 39.3 MM HG (35-48); ABG PO2 109.4 MM HG (80-95); ABG TCO2 26.1 MMOL/L (23-27)
[2020-04-13 06:06] LABS: Calcium 6.7 MG/DL (8.5-10.1); Osmolality,Calculated 321.4 MOS/KG (273-304)
[2020-04-13 06:08] LABS: Basophils # 0.2 10*3/uL (0.0-0.2); Basophils % 0.6 % (0.0-0.8); Hematocrit 29.7 VOL% (42.0-52.0); Hemoglobin 9.5 GM/DL (14.0-18.0); Immature Granulocytes % 3.3 %; Immature Granulocytes Absolute 1.03 #; Lymphocytes # 0.3 10*3/uL (1.4-4.0); Mean Corpuscular Volume 97.1 FL (87-102); Monocytes % 1.6 % (1.7-12.7); NRBC # 0.23 10*3/uL; Neutrophils % 93.5 % (38.7-73.9); Platelet Count 95 T/CUMM (130-400); Red Blood Count 3.06 MC/CUMM (3.8-5.5); Red Cell Distribution Width 14.8 % (9.3-17.3); White Blood Count 31.1 T/CUMM (4-12)
[2020-04-13 06:34] LABS: Anisocytosis 1+; Band Neutrophils 3 % (0-10); Lymphocytes 1 % (20-55); Platelet Estimate Decreased; Segmented Neutrophils 95 % (50-85); Total Cells Counted 100
[2020-04-13] MEDS: SODIUM BICARB INJ 150 MEQ in STERILE WATER INJ 850 ML IV SCH ×2 (06:54→09:46)
[2020-04-13] MEDS: MEROPENEM 500 MG in SODIUM CHLORIDE 0.9% 100 ML IV SCH (06:57)
[2020-04-13] MEDS ORDERED: NOREPINEPHRINE 4 MG/4 ML VIAL IV ONE ×2 (07:07→18:08)
[2020-04-13] MEDS: NOREPINEPHRINE 8 MG in SODIUM CHLORIDE 0.9% 242 ML IV PRN (07:15)
[2020-04-13] MEDS ORDERED: HYDROmorphone 2 MG/1 ML VIAL IV PRN (07:44)
[2020-04-13] MEDS: VENLAFAXINE XR 75 MG CAPSULE PO SCH (08:47)
[2020-04-13] MEDS: PANTOPRAZOLE 40 MG VIAL IV SCH (08:47)
[2020-04-13] MEDS: LIDOCAINE 5% PATCH TRANSDERM SCH (08:47)
[2020-04-13] MEDS: MORPHINE ER 30 MG TABLET PO SCH ×2 (08:47→23:15)
[2020-04-13] MEDS: DILTIAZEM 30 MG TABLET PO SCH ×4 (08:47→23:14)
[2020-04-13] MEDS: GABAPENTIN 100 MG CAPSULE PO SCH ×3 (08:47→23:15)
[2020-04-13] MEDS: AMIODARONE INJ 450 MG in DEXTROSE 5% 241 ML IV SCH ×2 (12:30→17:03)
[2020-04-13] MEDS: PIPERACILLIN/TAZOBACTAM 3,375 MG in SODIUM CHLORIDE 0.9% 100 ML IV SCH ×2 (15:28→23:17)
[2020-04-13] MEDS: dilTIAZem Drip 125 MG/125 ML PREMIX IV SCH (16:44)
[2020-04-13] MEDS: CEFEPIME 2,000 MG in SODIUM CHLORIDE 0.9% 100 ML IV SCH (17:56)
[2020-04-13] MEDS: ASPIRIN CHEW 81 MG TABLET PO SCH (23:14)
[2020-04-13] MEDS: TAMSULOSIN 0.4 MG CAPSULE PO SCH (23:15)
[2020-04-13] MEDS: MONTELUKAST 10 MG TABLET PO SCH (23:15)
[2020-04-13] MEDS: CLOPIDOGREL 75 MG TABLET PO SCH (23:15)
[2020-04-14] MEDS: INSULIN REGULAR 100 UNIT/ML SUBCUT SCH ×4 (01:07→18:31)
[2020-04-14] MEDS: METOPROLOL TARTRATE 5 MG/5 ML VIAL IV SCH ×5 (02:23→18:10)
[2020-04-14] MEDS: SODIUM BICARB INJ 150 MEQ in STERILE WATER INJ 850 ML IV SCH ×2 (03:39→05:57)
[2020-04-14 05:17] LABS: ABG HCO3 26.2 MMOL/L (20-26); ABG Oxygen Saturation 98.5 % (95-100); ABG PCO2 43.2 MM HG (35-48); ABG PH 7.405 (7.35-7.45); ABG TCO2 23.6 MMOL/L (23-27)
[2020-04-14 05:27] LABS: Basophils # 0.2 10*3/uL (0.0-0.2); Basophils % 0.4 % (0.0-0.8); Hematocrit 29.1 VOL% (42.0-52.0); Hemoglobin 9.8 GM/DL (14.0-18.0); Immature Granulocytes % 5.1 %; Immature Granulocytes Absolute 1.84 #; Lymphocytes # 0.3 10*3/uL (1.4-4.0); Lymphocytes % 0.7 % (21.2-54.2); Mean Corpuscular HGB Conc 33.7 GM/DL (32-36); Mean Platelet Volume 13.4 FL (9.6-12.0); Monocytes % 2.1 % (1.7-12.7); NRBC # 0.21 10*3/uL; Neutrophils % 91.7 % (38.7-73.9); Platelet Count 100 T/CUMM (130-400); Red Blood Count 3.13 MC/CUMM (3.8-5.5); White Blood Count 36.3 T/CUMM (4-12)
[2020-04-14 05:38] LABS: Calcium 6.6 MG/DL (8.5-10.1); Osmolality,Calculated 337.3 MOS/KG (273-304)
[2020-04-14] MEDS: AMIODARONE INJ 450 MG in DEXTROSE 5% 241 ML IV SCH (05:56)
[2020-04-14 06:29] LABS: Band Neutrophils 3 % (0-10); Lymphocytes 1 % (20-55); Metamyelocytes 1 %; Platelet Estimate Normal; Segmented Neutrophils 93 % (50-85); Total Cells Counted 100
[2020-04-14] MEDS: PIPERACILLIN/TAZOBACTAM 3,375 MG in SODIUM CHLORIDE 0.9% 100 ML IV SCH ×2 (06:29→15:55)
[2020-04-14 06:30] LABS: Microcytosis Slight; Target Cells Few
[2020-04-14] MEDS: ACETAMINOPHEN 325 MG TABLET PO PRN (06:30)
[2020-04-14 06:31] LABS: Polychromasia Slight
[2020-04-14] MEDS: DILTIAZEM 30 MG TABLET PO SCH ×4 (08:06→20:55)
[2020-04-14] MEDS: GABAPENTIN 100 MG CAPSULE PO SCH ×3 (08:06→20:56)
[2020-04-14] MEDS: PANTOPRAZOLE 40 MG VIAL IV SCH (08:06)
[2020-04-14] MEDS: methylPREDNISolone SOD SUC 40 MG/1 ML VIAL IV SCH ×2 (08:06→15:55)
[2020-04-14] MEDS: VENLAFAXINE XR 75 MG CAPSULE PO SCH (08:06)
[2020-04-14] MEDS: AMIODARONE 200 MG TABLET PO SCH (08:06)
[2020-04-14] MEDS: MORPHINE ER 30 MG TABLET PO SCH ×2 (08:07→20:56)
[2020-04-14] MEDS: LIDOCAINE 5% PATCH TRANSDERM SCH (08:07)
[2020-04-14] MEDS: ALBUMIN 25% 25 GM in PREMIX 1 EACH IV SCH ×2 (08:39→20:55)
[2020-04-14] MEDS: TAMSULOSIN 0.4 MG CAPSULE PO SCH (20:55)
[2020-04-14] MEDS: ASPIRIN CHEW 81 MG TABLET PO SCH (20:55)
[2020-04-14] MEDS: MONTELUKAST 10 MG TABLET PO SCH (20:56)
[2020-04-14] MEDS: CLOPIDOGREL 75 MG TABLET PO SCH (20:56)
[2020-04-14] MEDS: CEFEPIME 2,000 MG in SODIUM CHLORIDE 0.9% 100 ML IV SCH (21:40)
[2020-04-15] MEDS: PIPERACILLIN/TAZOBACTAM 3,375 MG in SODIUM CHLORIDE 0.9% 100 ML IV SCH ×2 (00:45→06:04)
[2020-04-15] MEDS: METOPROLOL TARTRATE 5 MG/5 ML VIAL IV SCH ×3 (01:16→05:57)
[2020-04-15] MEDS: INSULIN REGULAR 100 UNIT/ML SUBCUT SCH ×4 (01:17→17:47)
[2020-04-15] MEDS: methylPREDNISolone SOD SUC 40 MG/1 ML VIAL IV SCH ×3 (01:17→17:53)
[2020-04-15 04:51] LABS: Basophils # 0.1 10*3/uL (0.0-0.2); Basophils % 0.3 % (0.0-0.8); Hematocrit 25.5 VOL% (42.0-52.0); Hemoglobin 8.2 GM/DL (14.0-18.0); Immature Granulocytes % 5.6 %; Immature Granulocytes Absolute 1.85 #; Mean Corpuscular HGB Conc 32.2 GM/DL (32-36); Mean Platelet Volume 13.8 FL (9.6-12.0); Monocytes % 0.5 % (1.7-12.7); NRBC # 0.11 10*3/uL; Neutrophils % 90.6 % (38.7-73.9); Platelet Count 102 T/CUMM (130-400); Red Blood Count 2.63 MC/CUMM (3.8-5.5); Red Cell Distribution Width 15.2 % (9.3-17.3); White Blood Count 32.9 T/CUMM (4-12)
[2020-04-15 04:52] LABS: Calcium 6.7 MG/DL (8.5-10.1); Osmolality,Calculated 348.3 MOS/KG (273-304)
[2020-04-15 04:53] LABS: Allen Test Positive; Pt O2 Delivery Device Ventilator
[2020-04-15 04:54] LABS: ABG Base Excess 2.3 MMOL/L (-2.5-2.5); ABG HCO3 26.3 MMOL/L (20-26); ABG Oxygen Saturation 86.6 % (95-100); ABG PH 7.394 (7.35-7.45); ABG PO2 55.6 MM HG (80-95); ABG TCO2 25.6 MMOL/L (23-27)
[2020-04-15 04:55] LABS: Albumin 1.7 G/DL (3.4-5.0); Bilirubin,Direct 3.79 MG/DL (0.0-0.20); Bilirubin,Indirect 1.3 MG/DL (0.0-1.0); Bilirubin,Total 5.1 MG/DL (0.2-1.0); Total Protein 3.9 G/DL (6.4-8.3)
[2020-04-15 05:17] LABS: Band Neutrophils 2 % (0-10); Hypochromasia 1+; Lymphocytes 2 % (20-55); Microcytosis Slight; Ovalocytes Slight; Segmented Neutrophils 92 % (50-85); Total Cells Counted 100
[2020-04-15 07:23] LABS: ABG Base Excess 1.7 MMOL/L (-2.5-2.5); ABG HCO3 25.9 MMOL/L (20-26); ABG Oxygen Saturation 97.5 % (95-100); ABG PCO2 42.3 MM HG (35-48); ABG PH 7.406 (7.35-7.45); ABG TCO2 24.4 MMOL/L (23-27); Pt O2 Delivery Device Ventilator
[2020-04-15] MEDS: VENLAFAXINE XR 75 MG CAPSULE PO SCH (08:29)
[2020-04-15] MEDS: GABAPENTIN 100 MG CAPSULE PO SCH ×3 (08:30→20:48)
[2020-04-15] MEDS: LIDOCAINE 5% PATCH TRANSDERM SCH (08:30)
[2020-04-15] MEDS: MORPHINE ER 30 MG TABLET PO SCH ×2 (08:30→20:48)
[2020-04-15] MEDS: SODIUM BICARB INJ 150 MEQ in STERILE WATER INJ 850 ML IV SCH (08:43)
[2020-04-15] MEDS: DILTIAZEM 30 MG TABLET PO SCH ×4 (08:44→20:48)
[2020-04-15] MEDS: AMIODARONE 200 MG TABLET PO SCH (08:44)
[2020-04-15] MEDS: ALBUMIN 25% 25 GM in PREMIX 1 EACH IV SCH ×2 (08:44→20:48)
[2020-04-15] MEDS: PANTOPRAZOLE 40 MG VIAL IV SCH (08:48)
[2020-04-15] MEDS ORDERED: METOPROLOL TARTRATE 5 MG/5 ML VIAL IV PRN (09:15)
[2020-04-15 12:56] LABS: Hepatitis B Core IgM Quant 0.22 Index; Hepatitis B Surface Ag Quant < 0.10 Index; Hepatitis B Surface Ag Result Negative (Negative); Hepatitis C Virus Ab Quant 0.06 Index; Hepatitis C Virus Ab Result Negative (Negative)
[2020-04-15] MEDS ORDERED: PIPERACILLIN/TAZOBACTAM 3,375 MG in SODIUM CHLORIDE 0.9% 100 ML IV SCH (18:00)
[2020-04-15] MEDS: PHENYLEPHRINE DRIP 40 MG/250 ML PREMIX IV PRN ×2 (18:39→22:37)
[2020-04-15] MEDS: CIPROFLOXACIN INJ 400 MG in PREMIX 1 EACH IV SCH (20:47)
[2020-04-15] MEDS: MONTELUKAST 10 MG TABLET PO SCH (20:48)
[2020-04-15] MEDS: ASPIRIN CHEW 81 MG TABLET PO SCH (20:48)
[2020-04-15] MEDS: TAMSULOSIN 0.4 MG CAPSULE PO SCH (20:48)
[2020-04-15] MEDS: CLOPIDOGREL 75 MG TABLET PO SCH (20:48)
[2020-04-15] MEDS: cefTAZidime 1,000 MG in SYRINGE 1 EACH IV SCH (21:13)
[2020-04-15] MEDS: METOPROLOL TARTRATE 25 MG TABLET PO SCH (21:29)
[2020-04-16] MEDS: INSULIN REGULAR 100 UNIT/ML SUBCUT SCH ×4 (00:15→18:04)
[2020-04-16] MEDS: methylPREDNISolone SOD SUC 40 MG/1 ML VIAL IV SCH ×3 (00:16→15:29)
[2020-04-16] MEDS: SODIUM BICARB INJ 150 MEQ in STERILE WATER INJ 850 ML IV SCH ×2 (03:25→16:00)
[2020-04-16] MEDS: PHENYLEPHRINE DRIP 40 MG/250 ML PREMIX IV PRN (03:25)
[2020-04-16 04:06] LABS: ABG Base Excess -0.2 MMOL/L (-2.5-2.5); ABG Oxygen Saturation 98.6 % (95-100); ABG PH 7.382 (7.35-7.45); ABG PO2 178.1 MM HG (80-95); ABG TCO2 26.3 MMOL/L (23-27); Allen Test Positive; Pt O2 Delivery Device Ventilator
[2020-04-16 05:33] LABS: Basophils # 0.1 10*3/uL (0.0-0.2); Basophils % 0.1 % (0.0-0.8); Hematocrit 28.3 VOL% (42.0-52.0); Hemoglobin 9.1 GM/DL (14.0-18.0); Immature Granulocytes % 7.2 %; Lymphocytes # 0.3 10*3/uL (1.4-4.0); Lymphocytes % 0.5 % (21.2-54.2); Mean Corpuscular HGB Conc 32.2 GM/DL (32-36); Mean Corpuscular Volume 95.3 FL (87-102); Mean Platelet Volume 13.9 FL (9.6-12.0); Monocytes % 1.9 % (1.7-12.7); NRBC # 0.23 10*3/uL; Neutrophils % 90.3 % (38.7-73.9); Platelet Count 164 T/CUMM (130-400); Red Blood Count 2.97 MC/CUMM (3.8-5.5); Red Cell Distribution Width 15.3 % (9.3-17.3)
[2020-04-16 05:55] LABS: Albumin 2.1 G/DL (3.4-5.0); Bilirubin,Direct 3.98 MG/DL (0.0-0.20); Total Protein 4.6 G/DL (6.4-8.3)
[2020-04-16 05:59] LABS: Band Neutrophils 2 % (0-10); Hypochromasia 1+; Lymphocytes 2 % (20-55); Microcytosis Slight; Nucleated Red Blood Cells 2 (0-5); Segmented Neutrophils 93 % (50-85); Total Cells Counted 100
[2020-04-16 06:00] LABS: Platelet Estimate Adequate; Polychromasia Slight
[2020-04-16] MEDS: DILTIAZEM 30 MG TABLET PO SCH ×4 (08:24→20:12)
[2020-04-16] MEDS: AMIODARONE 200 MG TABLET PO SCH (08:24)
[2020-04-16] MEDS: PANTOPRAZOLE 40 MG VIAL IV SCH (08:25)
[2020-04-16] MEDS: metroNIDAZOLE INJ 500 MG in PREMIX 1 EACH IV SCH ×2 (08:25→15:29)
[2020-04-16] MEDS: LINEZOLID INJ 600 MG in PREMIX 1 EACH IV SCH ×2 (08:25→20:12)
[2020-04-16 08:33] LABS: Osmolality,Calculated 328.5 MOS/KG (273-304)
[2020-04-16] MEDS: LIDOCAINE 5% PATCH TRANSDERM SCH (08:44)
[2020-04-16] MEDS: MORPHINE ER 30 MG TABLET PO SCH ×2 (08:44→20:12)
[2020-04-16] MEDS: GABAPENTIN 100 MG CAPSULE PO SCH ×3 (08:44→20:12)
[2020-04-16] MEDS: METOPROLOL TARTRATE 25 MG TABLET PO SCH ×2 (08:44→22:58)
[2020-04-16] MEDS ORDERED: ALBUMIN 25% 25 GM in PREMIX 1 EACH IV ONE (10:30)
[2020-04-16] MEDS: cefTAZidime 1,000 MG in SYRINGE 1 EACH IV SCH (18:04)
[2020-04-16] MEDS: ASPIRIN CHEW 81 MG TABLET PO SCH (20:11)
[2020-04-16] MEDS: CIPROFLOXACIN INJ 400 MG in PREMIX 1 EACH IV SCH (20:11)
[2020-04-16] MEDS: TAMSULOSIN 0.4 MG CAPSULE PO SCH (20:12)
[2020-04-16] MEDS: MONTELUKAST 10 MG TABLET PO SCH (20:12)
[2020-04-16] MEDS: CLOPIDOGREL 75 MG TABLET PO SCH (20:12)
[2020-04-17] MEDS: metroNIDAZOLE INJ 500 MG in PREMIX 1 EACH IV SCH ×4 (00:30→23:46)
[2020-04-17] MEDS: methylPREDNISolone SOD SUC 40 MG/1 ML VIAL IV SCH ×3 (01:01→16:00)
[2020-04-17] MEDS: INSULIN REGULAR 100 UNIT/ML SUBCUT SCH ×5 (01:01→23:46)
[2020-04-17 03:53] LABS: ABG Base Excess 0.9 MMOL/L (-2.5-2.5); ABG HCO3 25.3 MMOL/L (20-26); ABG Oxygen Saturation 98.7 % (95-100); ABG PCO2 46.3 MM HG (35-48); ABG PH 7.367 (7.35-7.45); ABG TCO2 24.6 MMOL/L (23-27); Allen Test Positive; Pt O2 Delivery Device Ventilator
[2020-04-17 05:31] LABS: Basophils # 0.2 10*3/uL (0.0-0.2); Basophils % 0.4 % (0.0-0.8); Hemoglobin 8.5 GM/DL (14.0-18.0); Immature Granulocytes % 6.5 %; Immature Granulocytes Absolute 3.28 #; Lymphocytes # 0.2 10*3/uL (1.4-4.0); Lymphocytes % 0.5 % (21.2-54.2); Mean Corpuscular HGB Conc 31.5 GM/DL (32-36); Mean Corpuscular Volume 97.5 FL (87-102); Mean Platelet Volume 13.9 FL (9.6-12.0); Monocytes % 1.3 % (1.7-12.7); NRBC # 0.08 10*3/uL; Neutrophils % 91.3 % (38.7-73.9); Platelet Count 176 T/CUMM (130-400); Red Blood Count 2.77 MC/CUMM (3.8-5.5); Red Cell Distribution Width 15.4 % (9.3-17.3)
[2020-04-17] MEDS: SODIUM BICARB INJ 150 MEQ in STERILE WATER INJ 850 ML IV SCH (05:32)
[2020-04-17 05:43] LABS: Calcium 6.9 MG/DL (8.5-10.1); Osmolality,Calculated 322.8 MOS/KG (273-304)
[2020-04-17 05:45] LABS: White Blood Count 50.5 T/CUMM (4-12)
[2020-04-17 05:47] LABS: Bilirubin,Direct 3.41 MG/DL (0.0-0.20); Bilirubin,Indirect 1.8 MG/DL (0.0-1.0); Bilirubin,Total 5.2 MG/DL (0.2-1.0); Total Protein 4.4 G/DL (6.4-8.3)
[2020-04-17 06:01] LABS: Hypochromasia 1+; Lymphocytes 3 % (20-55); Metamyelocytes 2 %; Segmented Neutrophils 94 % (50-85); Total Cells Counted 100
[2020-04-17 06:02] LABS: Microcytosis Slight; Platelet Estimate Adequate; Polychromasia Slight; Target Cells Slight
[2020-04-17] MEDS: LINEZOLID INJ 600 MG in PREMIX 1 EACH IV SCH ×2 (08:14→19:45)
[2020-04-17] MEDS: PANTOPRAZOLE 40 MG VIAL IV SCH (08:29)
[2020-04-17] MEDS: DILTIAZEM 30 MG TABLET PO SCH ×4 (08:30→20:26)
[2020-04-17] MEDS: GABAPENTIN 100 MG CAPSULE PO SCH ×3 (08:30→20:27)
[2020-04-17] MEDS: AMIODARONE 200 MG TABLET PO SCH (08:30)
[2020-04-17] MEDS: LIDOCAINE 5% PATCH TRANSDERM SCH (08:31)
[2020-04-17] MEDS: METOPROLOL TARTRATE 25 MG TABLET PO SCH ×2 (08:33→20:27)
[2020-04-17] MEDS: MORPHINE ER 30 MG TABLET PO SCH ×2 (09:37→21:27)
[2020-04-17] MEDS: PHENYLEPHRINE DRIP 40 MG/250 ML PREMIX IV PRN (16:04)
[2020-04-17] MEDS: cefTAZidime 1,000 MG in SYRINGE 1 EACH IV SCH (19:18)
[2020-04-17] MEDS: ASPIRIN CHEW 81 MG TABLET PO SCH (20:26)
[2020-04-17] MEDS: TAMSULOSIN 0.4 MG CAPSULE PO SCH (20:27)
[2020-04-17] MEDS: MONTELUKAST 10 MG TABLET PO SCH (20:27)
[2020-04-17] MEDS: CLOPIDOGREL 75 MG TABLET PO SCH (20:27)
[2020-04-17] MEDS: CIPROFLOXACIN INJ 400 MG in PREMIX 1 EACH IV SCH (20:28)
[2020-04-18] MEDS: methylPREDNISolone SOD SUC 40 MG/1 ML VIAL IV SCH ×4 (00:58→23:37)
[2020-04-18] MEDS: SODIUM BICARB INJ 150 MEQ in STERILE WATER INJ 850 ML IV SCH (02:01)
[2020-04-18 04:41] LABS: ABG Base Excess -1.7 MMOL/L (-2.5-2.5); ABG HCO3 23.8 MMOL/L (20-26); ABG Oxygen Saturation 95.9 % (95-100); ABG PCO2 43.5 MM HG (35-48); ABG PH 7.356 (7.35-7.45); ABG PO2 88.1 MM HG (80-95); ABG TCO2 25.1 MMOL/L (23-27); Allen Test Positive; Pt O2 Delivery Device Ventilator
[2020-04-18] MEDS: INSULIN REGULAR 100 UNIT/ML SUBCUT SCH ×4 (06:03→23:57)
[2020-04-18 06:17] LABS: Calcium 7.3 MG/DL (8.5-10.1); Osmolality,Calculated 310.2 MOS/KG (273-304)
[2020-04-18] MEDS: MORPHINE ER 30 MG TABLET PO SCH ×2 (08:24→20:30)
[2020-04-18] MEDS: PANTOPRAZOLE 40 MG VIAL IV SCH (08:39)
[2020-04-18] MEDS: metroNIDAZOLE INJ 500 MG in PREMIX 1 EACH IV SCH ×3 (08:40→23:36)
[2020-04-18] MEDS: LINEZOLID INJ 600 MG in PREMIX 1 EACH IV SCH ×2 (08:40→18:34)
[2020-04-18] MEDS: LIDOCAINE 5% PATCH TRANSDERM SCH (08:42)
[2020-04-18] MEDS: DILTIAZEM 30 MG TABLET PO SCH ×5 (08:48→20:12)
[2020-04-18] MEDS: METOPROLOL TARTRATE 25 MG TABLET PO SCH ×3 (08:48→20:13)
[2020-04-18] MEDS: GABAPENTIN 100 MG CAPSULE PO SCH ×4 (08:48→20:12)
[2020-04-18] MEDS: AMIODARONE 200 MG TABLET PO SCH ×2 (08:49→10:37)
[2020-04-18 11:28] LABS: INR 1.4; PT Patient Result 14.3 SECS (9.8-11.9)
[2020-04-18] MEDS: cefTAZidime 1,000 MG in SYRINGE 1 EACH IV SCH (18:27)
[2020-04-18] MEDS: ENOXAPARIN 30 MG/0.3 ML SYRINGE SUBCUT SCH (18:28)
[2020-04-18] MEDS: CLOPIDOGREL 75 MG TABLET PO SCH (20:12)
[2020-04-18] MEDS: TAMSULOSIN 0.4 MG CAPSULE PO SCH (20:12)
[2020-04-18] MEDS: ASPIRIN CHEW 81 MG TABLET PO SCH (20:12)
[2020-04-18] MEDS: CIPROFLOXACIN INJ 400 MG in PREMIX 1 EACH IV SCH (20:12)
[2020-04-18] MEDS: MONTELUKAST 10 MG TABLET PO SCH (20:13)
[2020-04-18] MEDS: PHENYLEPHRINE DRIP 40 MG/250 ML PREMIX IV PRN (23:01)
[2020-04-19] MEDS: ACETAMINOPHEN 325 MG TABLET PO PRN (01:55)
[2020-04-19] MEDS: SODIUM BICARB INJ 150 MEQ in STERILE WATER INJ 850 ML IV SCH ×2 (01:57→15:25)
[2020-04-19 04:11] LABS: Allen Test Positive; Pt O2 Delivery Device Ventilator
[2020-04-19 04:12] LABS: ABG Base Excess -3.6 MMOL/L (-2.5-2.5); ABG HCO3 21.3 MMOL/L (20-26); ABG Oxygen Saturation 93.7 % (95-100); ABG PH 7.322 (7.35-7.45); ABG PO2 76.6 MM HG (80-95); ABG TCO2 20.9 MMOL/L (23-27)
[2020-04-19 05:11] LABS: Basophils # 0.2 10*3/uL (0.0-0.2); Basophils % 0.3 % (0.0-0.8); Hematocrit 25.1 VOL% (42.0-52.0); Immature Granulocytes % 7.3 %; Immature Granulocytes Absolute 3.37 #; Lymphocytes # 0.6 10*3/uL (1.4-4.0); Lymphocytes % 1.3 % (21.2-54.2); Mean Corpuscular HGB Conc 31.9 GM/DL (32-36); Mean Corpuscular Volume 96.9 FL (87-102); Mean Platelet Volume 12.8 FL (9.6-12.0); NRBC # 0.05 10*3/uL; Neutrophils % 90.1 % (38.7-73.9); Platelet Count 295 T/CUMM (130-400); Red Blood Count 2.59 MC/CUMM (3.8-5.5); Red Cell Distribution Width 15.6 % (9.3-17.3)
[2020-04-19 05:19] LABS: White Blood Count 46.3 T/CUMM (4-12)
[2020-04-19] MEDS: PHENYLEPHRINE DRIP 40 MG/250 ML PREMIX IV PRN ×6 (05:28→21:41)
[2020-04-19] MEDS: INSULIN REGULAR 100 UNIT/ML SUBCUT SCH ×3 (05:57→17:47)
[2020-04-19 06:42] LABS: Albumin 1.5 G/DL (3.4-5.0); Bilirubin,Total 3.7 MG/DL (0.2-1.0); Calcium 6.3 MG/DL (8.5-10.1); Osmolality,Calculated 331.4 MOS/KG (273-304); Total Protein 4.2 G/DL (6.4-8.3)
[2020-04-19 07:11] LABS: Metamyelocytes 1 %; Platelet Estimate Normal
[2020-04-19 07:12] LABS: Anisocytosis 1+; Hypochromasia 2+; Lymphocytes 3 % (20-55); Macrocytosis 1+; Segmented Neutrophils 94 % (50-85); Total Cells Counted 100
[2020-04-19] MEDS: GABAPENTIN 100 MG CAPSULE PO SCH ×3 (09:30→21:15)
[2020-04-19] MEDS: DILTIAZEM 30 MG TABLET PO SCH ×4 (09:30→21:15)
[2020-04-19] MEDS: metroNIDAZOLE INJ 500 MG in PREMIX 1 EACH IV SCH ×2 (09:30→17:27)
[2020-04-19] MEDS: METOPROLOL TARTRATE 25 MG TABLET PO SCH ×2 (09:30→21:23)
[2020-04-19] MEDS: SODIUM BICARBONATE 50 MEQ/50 ML VIAL IV SCH ×2 (09:30→11:30)
[2020-04-19] MEDS: AMIODARONE 200 MG TABLET PO SCH (09:30)
[2020-04-19] MEDS: PANTOPRAZOLE 40 MG VIAL IV SCH (09:30)
[2020-04-19] MEDS: methylPREDNISolone SOD SUC 40 MG/1 ML VIAL IV SCH ×2 (09:30→17:28)
[2020-04-19] MEDS: LINEZOLID INJ 600 MG in PREMIX 1 EACH IV SCH ×2 (09:30→19:27)
[2020-04-19] MEDS ORDERED: NOREPINEPHRINE 4 MG/4 ML VIAL IV ONE (11:21)
[2020-04-19] MEDS: NOREPINEPHRINE 8 MG in SODIUM CHLORIDE 0.9% 242 ML IV PRN (11:25)
[2020-04-19] MEDS ORDERED: HEPARIN 10,000 UNIT/10 ML VIAL IV SCH (11:45)
[2020-04-19] MEDS: MORPHINE ER 30 MG TABLET PO SCH ×2 (17:13→21:16)
[2020-04-19] MEDS: LIDOCAINE 5% PATCH TRANSDERM SCH (17:27)
[2020-04-19] MEDS: ENOXAPARIN 30 MG/0.3 ML SYRINGE SUBCUT SCH (18:30)
[2020-04-19] MEDS: cefTAZidime 1,000 MG in SYRINGE 1 EACH IV SCH (18:30)
[2020-04-19] MEDS: CIPROFLOXACIN INJ 400 MG in PREMIX 1 EACH IV SCH (21:14)
[2020-04-19] MEDS: MONTELUKAST 10 MG TABLET PO SCH (21:15)
[2020-04-19] MEDS: ASPIRIN CHEW 81 MG TABLET PO SCH (21:15)
[2020-04-19] MEDS: CLOPIDOGREL 75 MG TABLET PO SCH (21:15)
[2020-04-19] MEDS: TAMSULOSIN 0.4 MG CAPSULE PO SCH (21:15)
[2020-04-20] MEDS: INSULIN REGULAR 100 UNIT/ML SUBCUT SCH ×4 (00:08→18:15)
[2020-04-20] MEDS: methylPREDNISolone SOD SUC 40 MG/1 ML VIAL IV SCH ×4 (00:10→23:01)
[2020-04-20] MEDS: metroNIDAZOLE INJ 500 MG in PREMIX 1 EACH IV SCH ×4 (00:34→23:01)
[2020-04-20] MEDS: SODIUM BICARB INJ 150 MEQ in STERILE WATER INJ 850 ML IV SCH (02:24)
[2020-04-20] MEDS: PHENYLEPHRINE DRIP 40 MG/250 ML PREMIX IV PRN ×5 (03:02→16:45)
[2020-04-20 04:16] LABS: Basophils # 0.1 10*3/uL (0.0-0.2); Basophils % 0.2 % (0.0-0.8); Hematocrit 24.3 VOL% (42.0-52.0); Hemoglobin 7.8 GM/DL (14.0-18.0); Immature Granulocytes % 5.1 %; Immature Granulocytes Absolute 2.56 #; Lymphocytes # 0.5 10*3/uL (1.4-4.0); Lymphocytes % 0.9 % (21.2-54.2); Mean Corpuscular HGB Conc 32.1 GM/DL (32-36); Mean Platelet Volume 12.3 FL (9.6-12.0); Monocytes % 1.4 % (1.7-12.7); NRBC # 0.09 10*3/uL; Neutrophils % 92.4 % (38.7-73.9); Platelet Count 242 T/CUMM (130-400); Red Blood Count 2.48 MC/CUMM (3.8-5.5)
[2020-04-20 04:51] LABS: White Blood Count 49.9 T/CUMM (4-12)
[2020-04-20 04:58] LABS: Lymphocytes 2 % (20-55); Segmented Neutrophils 96 % (50-85); Total Cells Counted 100
[2020-04-20 04:59] LABS: Hypochromasia 1+; Macrocytosis 1+; Platelet Estimate Normal; Polychromasia Slight
[2020-04-20 05:04] LABS: ABG Base Excess -3.8 MMOL/L (-2.5-2.5); ABG HCO3 21.2 MMOL/L (20-26); ABG Oxygen Saturation 97.4 % (95-100); ABG PCO2 44.6 MM HG (35-48); ABG PH 7.307 (7.35-7.45); ABG TCO2 21.1 MMOL/L (23-27); Allen Test Positive; Pt O2 Delivery Device Ventilator
[2020-04-20 05:34] LABS: Albumin 1.4 G/DL (3.4-5.0); Bilirubin,Total 2.9 MG/DL (0.2-1.0); Calcium 6.1 MG/DL (8.5-10.1); Osmolality,Calculated 322.4 MOS/KG (273-304); Total Protein 4.1 G/DL (6.4-8.3)
[2020-04-20] MEDS: PANTOPRAZOLE 40 MG VIAL IV SCH (09:10)
[2020-04-20] MEDS: LINEZOLID INJ 600 MG in PREMIX 1 EACH IV SCH ×2 (09:10→19:54)
[2020-04-20] MEDS: GABAPENTIN 100 MG CAPSULE PO SCH ×3 (09:20→20:28)
[2020-04-20] MEDS: AMIODARONE 200 MG TABLET PO SCH (09:20)
[2020-04-20] MEDS: DILTIAZEM 30 MG TABLET PO SCH ×4 (09:20→20:27)
[2020-04-20] MEDS: METOPROLOL TARTRATE 25 MG TABLET PO SCH ×2 (09:20→20:27)
[2020-04-20] MEDS: NOREPINEPHRINE 8 MG in SODIUM CHLORIDE 0.9% 242 ML IV PRN ×2 (12:00→23:35)
[2020-04-20] MEDS: ACETAMINOPHEN 325 MG TABLET PO PRN ×2 (12:15→19:56)
[2020-04-20] MEDS: LIDOCAINE 5% PATCH TRANSDERM SCH (13:00)
[2020-04-20] MEDS: cefTAZidime 1,000 MG in SYRINGE 1 EACH IV SCH (18:15)
[2020-04-20] MEDS: ENOXAPARIN 30 MG/0.3 ML SYRINGE SUBCUT SCH (18:15)
[2020-04-20] MEDS: CIPROFLOXACIN INJ 400 MG in PREMIX 1 EACH IV SCH (20:25)
[2020-04-20] MEDS: TAMSULOSIN 0.4 MG CAPSULE PO SCH (20:27)
[2020-04-20] MEDS: CLOPIDOGREL 75 MG TABLET PO SCH (20:27)
[2020-04-20] MEDS: MONTELUKAST 10 MG TABLET PO SCH (20:27)
[2020-04-20] MEDS: ASPIRIN CHEW 81 MG TABLET PO SCH (20:27)
[2020-04-20 20:30] VITALS: BP 97/50
[2020-04-20] MEDS: PHENYLEPHRINE INJ 160 MG in SODIUM CHLORIDE 0.9% 234 ML IV PRN (20:52)
[2020-04-21] MEDS: INSULIN REGULAR 100 UNIT/ML SUBCUT SCH (00:24)
[2020-04-21] MEDS: SODIUM BICARB INJ 150 MEQ in STERILE WATER INJ 850 ML IV SCH ×2 (01:37→01:59)
== END 2020-04-21 03:20 | disposition expired | DRG 215 ==
LOC: EDBD → EDUNIT# → N.ED 15:43 → N.EDINP 15:43 → N.3E 19:00 → SUATTDRO 04-07 11:26 → N.ICU 04-07 12:00
PROVIDERS: ADMIT Internal Medicine; ATTEND Internal Medicine
PROC: CLCCHCL (ICD-10-PCS; 2020-04-07 22:45)